=== PATIENT | male | born 1945 | race Caucasian/White ===

== ENCOUNTER 2017-08-05 06:47 | Day surgery (SDC) | payer MEDICARE, SELFPAY ==
[2017-07-31 16:21] VITALS: BMI 35.9
[2017-08-05] VITALS (7 sets, daily range): BP systolic 128–162; BP diastolic 71–79; PULSE 45–57; RESP 12–18; TEMP -12.3–36.7; O2SAT 99–100
== END 2017-08-05 08:45 | disposition home or self-care (01) ==
LOC: OR 06:49
PROVIDERS: PCP Family Medicine; Visit Provider Ophthalmology
DX: H26.9 Unspecified cataract (principal)
CPT/HCPCS: 66984; V2632

== ENCOUNTER 2017-09-02 08:24 | Day surgery (SDC) | payer MEDICARE, SELFPAY ==
[2017-08-29 15:41] VITALS: BMI 36.0
[2017-09-02] VITALS (9 sets, daily range): BP systolic 119–180; BP diastolic 72–90; PULSE 49–60; RESP 16–20; TEMP 36.5–36.8; O2SAT 97–100
== END 2017-09-02 11:14 | disposition home or self-care (01) ==
LOC: OR 08:25
PROVIDERS: PCP Family Medicine; Visit Provider Ophthalmology
DX: H26.9 Unspecified cataract (principal)
CPT/HCPCS: 66984; V2632

== ENCOUNTER → 2019-08-19 13:48 | Outpatient (CLI) | payer MEDICARE, SELFPAY ==
[2019-08-19 14:03] LABS: Basophils # 0.1 K/mm3 (0-0.2); Basophils % 0.7 % (0.1-2.0); Eosinophils # 0.2 K/mm3 (0.0-0.4); Eosinophils % 2.3 % (0.1-12.0); Hematocrit 46.6 % (42.0-52.0); Hemoglobin 15.6 g/dL (14.1-18.0); Lymphocytes # 1.6 K/mm3 (0.7-4.5); Lymphocytes % 22.3 % (10-50); Mean Corpuscular HGB Conc 33.5 g/dL (31.8-35.4); Mean Corpuscular Hemoglobin 29.2 pg (27.0-31.2); Mean Corpuscular Volume 87.1 fl (80-94); Mean Platelet Volume 9.1 fl (7.4-10.4); Monocytes # 0.4 K/mm3 (0.1-1.0); Monocytes % 5.5 % (1.7-9.3); Neutrophils # 4.9 K/mm3 (1.8-7.8); Neutrophils % 69.1 % (37.0-80.0); Platelet Count 219 K/mm3 (142-424); Red Blood Count 5.36 M/mm3 (4.60-6.20); Red Cell Distribution Width 13.6 % (11.5-17.5); White Blood Count 7.1 K/mm3 (4.8-10.8)
--- NOTE | 2019-08-19 14:04 | CT_ITS ---
PROCEDURE: CT ABDOMEN PELVIS W CON CLINICAL INDICATION: gross hematuria Periumbilical pain, hematuria COMPARISON: No exams were available for comparison TECHNIQUE: IV Contrast: 75ML OPTIRAY 350 Oral Contrast none Axial images obtained with sagittal and coronal reformats. All CT scans at the facility use one or more dose reduction, viz: automated exposure control, ma/kV adjustment per patient size (including targeted exams where dose is matched to indication, i.e. head), or iterative reconstruction technique. FINDINGS: LOWER THORAX: There are coronary artery calcifications present ABDOMEN & PELVIS: The liver, spleen, adrenal glands, and pancreas have an unremarkable appearance. There is mixed density within the gallbladder with scattered areas air density along with calcification and soft tissue density consistent with a gallbladder filled with stones in sludge. Follow-up is suggested for confirmation. Consider nonemergent MRI of the gallbladder with MRCP without and with contrast for further evaluation. Cannot exclude underlying wall thickening of the gallbladder. No renal or ureteral calculi. No hydronephrosis. Unremarkable appearing urinary bladder No evidence of appendicitis. There is diverticulosis of the sigmoid and descending colon but no evidence of diverticulitis. The prostate is enlarged at 6.2 x 6.1 cm there are degenerative changes of the thoracic and lumbar spine IMPRESSION: 1. Complex appearance of the gallbladder which may only be related to stones and sludge filled gallbladder. There is some questionable enhancement at the neck of the gallbladder. Would recommend MRI of the gallbladder without and with contrast with MRCP for further evaluation to exclude underlying wall thickening of the gallbladder. 2. Colonic diverticulosis without evidence of diverticulitis. The 3. No evidence of appendicitis or obstructing renal or ureteral calculi 4. Enlarged prostate Dictated by: Arturo Marlow MD 08/19/2019 16:07 Electronically signed by Arturo Marlow MD in [place] 08/19/2019 16:07
[2019-08-19 14:07] LABS: Chloride 101 mmol/L (98-107); Potassium 4.3 mmoL/L (3.5-5.1); Sodium 141 mmol/L (136-145)
[2019-08-19 14:10] LABS: Anion Gap 15.3 mEq/L (5-15); Blood Urea Nitrogen 19 mg/dl (9-20); Calcium 9.9 mg/dl (8.4-10.2); Carbon Dioxide 29 mmol/L (22.0-30.0); Estimated Glomerular Filt Rate 65 ml/min (>60); GFR (African American) 79 ML/MIN (>60); Glucose 116 mg/dl (74-100)
== END ==
PROVIDERS: Visit Provider Urology
DX: R31.0 Gross hematuria
CPT/HCPCS: 36415; 74177; 80048; 85025; Q9967

== ENCOUNTER → 2019-09-23 10:12 | Outpatient (CLI) | payer MEDICARE, SELFPAY ==
[2019-09-24 11:28] LABS: PSA, Free 1.37 ng/mL; Prostate Specific Ag 3.9 ng/mL (0.0-4.0)
== END ==
PROVIDERS: Visit Provider Urology
DX: R97.20 Elevated prostate specific antigen [PSA] (principal); R31.9 Hematuria, unspecified
CPT/HCPCS: 36415; 84153; 84154

== ENCOUNTER → 2020-09-22 13:40 | Outpatient (CLI) | payer MEDICARE, SELFPAY ==
[2020-09-22 15:03] LABS: Prostate Specific Ag, Diagnost 1.86 ng/ml (0.0-4.0)
== END ==
PROVIDERS: Visit Provider Urology
DX: R97.20 Elevated prostate specific antigen [PSA] (principal)
CPT/HCPCS: 36415; 84153

== ENCOUNTER → 2021-09-24 14:17 | Outpatient (CLI) | payer MEDICARE, SELFPAY ==
[2021-09-24 15:57] LABS: Prostate Specific Ag Screen 2.1 ng/ml (0.0-4.0)
== END ==
PROVIDERS: Visit Provider Urology
DX: Z12.5 Encounter for screening for malignant neoplasm of prostate (principal)
CPT/HCPCS: 36415; G0103